=== PATIENT | male | born 1960 | race African-American/Black ===

== ENCOUNTER 2016-09-18 11:32 | Emergency (ER) | payer BC ==
[~2016-09-18] VITALS: Ht 180.3 cm; Wt 90.7 kg
[2016-09-18 11:40] VITALS: BP 149/87; PULSE 81; RESP 20; TEMP 97.6; O2SAT 97
[2016-09-18] MEDS ORDERED: MECLIZINE HCL 25 MG TABLET (ANITVERT) PO ONE (12:30)
[2016-09-18 16:34] LABS: HEMATOCRIT 42.1 % (36-54); MEAN CORPUSCULAR HEMOGLOBIN 27 pg (27-31); MEAN CORPUSCULAR HGB CONC 33 % (32-36); MEAN CORPUSCULAR VOLUME 81 fL (79.0-98.0); PLATELET COUNT (AUTO) 333 K/uL (130-430); RED BLOOD CELL COUNT(AUTO) 5.21 MIL/uL (4.2-6.2); RED CELL DISTRIBUTION WIDTH 14.4 % (9.0-15.0); WHITE BLOOD COUNT (AUTO) 10.7 K/uL (4.8-10.8)
[2016-09-18 16:45] LABS: ALBUMIN 4.3 g/dL (3.4-4.8); CALCIUM 9.6 mg/dL (8.4-11.0); CREATININE 1.01 mg/dL (0.55-1.30); POTASSIUM 4.3 mmol/L (3.5-5.1); TOTAL BILIRUBIN 0.2 mg/dL (0.0-1.0); TOTAL PROTEIN, SERUM 7.8 g/dL (6.4-8.3)
[2016-09-18 16:59] LABS: ATYPICAL LYMPHOCYTES % 0 % (0-0); BAND % (MANUAL) 0 % (0-6); BASOPHILS % (MANUAL) 0 % (0-2); EOSINOPHILS % (MANUAL) 3 % (0-7); LYMPHOCYTES % (MANUAL) 42 % (20-46); MONOCYTES % (MANUAL) 10 % (0-11)
[2016-09-18] MEDS ORDERED: MECLIZINE HCL 25 MG TABLET (ANITVERT) ONE (16:59)
[2016-09-18 17:25] VITALS: BP 164/91; PULSE 73; RESP 16; O2SAT 97
== END 2016-09-18 17:25 | disposition home or self-care (01) ==
LOC: SED 11:32
DX: R42 Dizziness and giddiness (principal)
CPT/HCPCS: 36415; 70450; 80053; 85007; 85027; 99285; J8597